=== PATIENT | female | born 1990 | race Caucasian/White ===

== ENCOUNTER 2023-04-24 17:36 | Emergency (ER) | payer OTHER, SELFPAY ==
[2023-04-24 17:40] VITALS: BP 146/85; PULSE 91; RESP 19; TEMP 36.7; O2SAT 99; BMI 26.4
--- NOTE | 2023-04-24 17:53 | DI.US.S_ITS ---
PROCEDURE: US OB <= 14 WEEKS FETUS INDICATIONS: SPOTTING 6 WEEKS OUTSIDE/PRIOR DATING DATA: Last menstrual period (LMP): March 11, 2023. LMP-based estimated date of delivery (ONIEL): December 16, 2023. TECHNIQUE: Real-time scanning was performed of the fetus and maternal pelvic organs, with image documentation. Endovaginal scanning was also performed to better visualize the fetus and maternal ovaries. COMPARISON: None. FINDINGS: Embryo: There is a suspected intrauterine gestational sac measuring approximately 5 weeks and 5 days based off mean gestational sac diameter of 0.9 cm. No pole. No evidence for cardiac activity. No evidence for perigestational hemorrhage. Heart rate: Not detected Maternal organs: Ovaries demonstrate probable right corpus luteal cyst measuring 1.4 x 0.6 by was 0.9 cm in size. No suspicious ovarian/adnexal masses. No pathologic pelvic free fluid. IMPRESSION: Likely single intrauterine gestation measuring approximately 5 weeks and 5 days based off mean gestational sac diameter measurements. No pole or cardiac activity visualized. No acute sonographic abnormalities identified. Recommend continued close clinical surveillance and consideration for serial quantitative beta HCG measurements to document expected rate of rise. Short interval follow-up imaging as needed to confirm presence of cardiac activity. We strive to produce accurate, complete, and clear reports of imaging services. To assist us in improving patient care, this report was composed using standard report templates and voice recognition software. Therefore, it may contain abnormal punctuation, insertions and/or omissions. Occasional wrong-word or sound-alike substitutions may occur. Though we review the report and make efforts to correct it, we do recommend that the report be read carefully in proper context to recognize any text inaccuracies. Dictated by: Jake Yuan M.D. on 04/24/2023 at 19:01 Approved by: Jake Yuan M.D. on 04/24/2023 at 19:05
[2023-04-24 18:10] LABS: Add Manual Diff / Slide Review NO; Basophils Absolute Auto 0 /uL (0-100); Basophils Percent Auto 0.7 % (0-2); Eosinophils Absolute Auto 100 /uL (0-450); Hematocrit 39.3 % (36-46); Hemoglobin 12.9 g/dL (12.0-16.0); Lymphocytes Absolute Auto 900 /uL (1100-4500); Lymphocytes Percent Auto 13.8 % (25-40); Mean Corpuscular HGB Conc 32.9 % (30-36); Mean Corpuscular Hemoglobin 29.1 PG (26-34); Mean Corpuscular Volume 88.6 fL (80-100); Monocytes Absolute Auto 400 /uL (0-900); Monocytes Percent Auto 6.3 % (3-14); Neutrophils Absolute Auto 5000 /uL (1500-7000); Neutrophils Percent Auto 77.2 % (50-75); Platelet Count 159 X10^3/uL (150-400); Red Blood Cell Count 4.44 X10^6/uL (4.0-5.2); Red Cell Distribution Width 14.1 % (11.6-14.8); White Blood Cell Count 6.4 X10^3/uL (4.5-11.0)
--- NOTE | 2023-04-24 18:16 | PC.NURSE ---
US at bedside
[2023-04-24 18:23] LABS: Alanine Aminotransferase 17 IU/L (<35); Albumin 4.4 g/dL (3.5-5.0); Albumin Globulin Ratio 1.4 (1.0-2.8); Alkaline Phosphatase 58 U/L (38-126); Aspartate Aminotransferase 20 IU/L (14-36); BUN Creatinine Ratio 10.7 (6-22); Bilirubin Total 0.7 mg/dL (0.2-1.3); Blood Urea Nitrogen 6 mg/dL (7-17); Calcium 9.1 mg/dL (8.4-10.2); Carbon Dioxide 23 mmol/L (22-32); Chloride 103 mmol/L (98-107); Estimated Glomerular Filt Rate > 60 mL/min (>60); Globulin 3.1 g/dL (1.7-4.1); Glucose 118 mg/dL (70-100); HEMOLYSIS < 15 (0-50); Potassium 3.7 mmol/L (3.4-5.1); Sodium 137 mmol/L (137-145); Total Protein 7.5 g/dL (6.3-8.2)
[2023-04-24 18:39] LABS: HCG Quantitative /Beta subunit 12203 mIU/mL
[2023-04-24 18:55] LABS: RBC Urine 0-1/HPF (0-5/HPF)
[2023-04-24 18:56] LABS: Bacteria Urine Many (>30); Squamous Epithelial Cell Urine 10-30 /HPF (0-5/HPF); WBC Urine 5-10/HPF (0-5/HPF)
--- NOTE | 2023-04-24 19:32 | ED_ITS ---
HPI - General Adult General Chief complaint: OB/Uterine Contractions Stated complaint: sent by [facility] for US Time Seen by Provider: 04/24/23 17:56 Source: patient Mode of arrival: Family Vehicle History of Present Illness HPI narrative: Patient is a 33-year-old female. at approximately 6 weeks EGA. She went to a outside walk-in clinic today for upper respiratory tract infection like symptoms. While she was in the waiting room she started to have vaginal spotting and some cramping. No urinary symptoms. She was tested for multiple viral illnesses all of which were negative the outside facility and sent to the emergency department for an ultrasound because of the vaginal bleeding. She does have an appointment at the beginning of next week with her OB provider. Related Data Allergies Allergy/AdvReac Type Severity Reaction Status Date / Time amoxicillin [From Augmentin] Allergy Rash Verified 04/24/23 19:06 clavulanic acid Allergy Rash Verified 04/24/23 19:06 [From Augmentin] diclofenac Allergy Rash Verified 04/24/23 19:06 ketamine Allergy Difficulty Verified 04/24/23 19:04 Breathing Latex, Natural Rubber Allergy Rash Verified 04/24/23 19:06 Penicillins Allergy Rash Verified 04/24/23 19:06 sulfamethoxazole Allergy Rash Verified 04/24/23 19:06 [From Bactrim] trimethoprim [From Bactrim] Allergy Rash Verified 04/24/23 19:06 Review of Systems Constitutional Constitutional: Reports system reviewed and no additional complaints, except as documented Gastrointestinal Gastrointestinal: Reports system reviewed and no additional complaints, except as documented Genitourinary Genitourinary: Reports system reviewed and no additional complaints, except as documented Integumentary/Breasts Skin/Breast: Reports system reviewed and no additional complaints, except as documented Patient History Social History Smoking Status: Never smoker Smoking Status: Never smoker alcohol intake frequency: 0-2 drinks per day Substance Use Type: does not use Exam Initial Vital Signs Initial Vital Signs: Vital Signs Temperature 98.1 F 04/24/23 17:40 Pulse Rate 91 H 04/24/23 17:40 Respiratory Rate 19 04/24/23 17:40 Blood Pressure 146/85 H 04/24/23 17:40 Pulse Oximetry 99 04/24/23 17:40 Oxygen Delivery Method Room Air 04/24/23 17:40 HENMT Head: normal to inspection and normocephalic GI Inspection: normal to inspection and non-distended Extrem General: normal to inspection Course Orders Ordered: ED Orders 04/24/23 17:28 Beta HCG, Quant [HCG Quantitative /Beta subunit] Stat Complete Blood Count AUTO DIFF Stat Comprehensive Metabolic Panel Stat 04/24/23 17:53 US OB <= 14 weeks fetus Stat 04/24/23 17:58 Type and Screen Stat 04/24/23 18:10 Urine Culture Stat Urine Microscopic Stat Vital Signs Vital signs: Vital Signs - 8 hr 04/24/23 17:40 04/24/23 19:43 Temperature 98.1 F Pulse Rate 91 H 93 H Respiratory Rate 19 20 Blood Pressure 146/85 H 125/69 Pulse Oximetry 99 100 Oxygen Delivery Method Room Air Room Air Medical Decision Making Lab Data Lab results reviewed: Yes I reviewed the patient's lab results. 04/24/23 17:28 04/24/23 17:28 Labs: Lab Results 04/24/23 04/24/23 04/24/23 Range/Units 17:28 17:58 18:10 WBC 6.4 (4.5-11.0) X10^3/uL RBC 4.44 (4.0-5.2) X10^6/uL Hgb 12.9 (12.0-16.0) g/dL Hct 39.3 (36-46) % MCV 88.6 (80-100) fL MCH 29.1 (26-34) PG MCHC 32.9 (30-36) % RDW 14.1 (11.6-14.8) % Plt Count 159 (150-400) X10^3/uL Neut % (Auto) 77.2 H (50-75) % Lymph % (Auto) 13.8 L (25-40) % [place] % (Auto) 6.3 (3-14) % Eos % (Auto) 2.0 (2-4) % Baso % (Auto) 0.7 (0-2) % Neut # (Auto) 5000 (5920-9281) /uL Lymph # (Auto) 900 L (8883-7546) /uL [place] # (Auto) 400 (0-900) /uL Eos # (Auto) 100 (0-450) /uL Baso # (Auto) 0 (0-100) /uL Sodium 137 (137-145) mmol/L Potassium 3.7 (3.4-5.1) mmol/L Chloride 103 (98-107) mmol/L Carbon Dioxide 23 (22-32) mmol/L BUN 6 L (7-17) mg/dL Creatinine 0.56 (0.52-1.04) mg/dL Estimated GFR > 60 (>60) mL/min BUN/Creatinine Ratio 10.7 (6-22) Glucose 118 H (70-100) mg/dL Calcium 9.1 (8.4-10.2) mg/dL Total Bilirubin 0.7 (0.2-1.3) mg/dL AST 20 (14-36) IU/L ALT 17 (<35) IU/L Alkaline Phosphatase 58 (38-126) U/L Total Protein 7.5 (6.3-8.2) g/dL Albumin 4.4 (3.5-5.0) g/dL Globulin 3.1 (1.7-4.1) g/dL Albumin/Globulin Ratio 1.4 (1.0-2.8) HCG, Quant 71833 mIU/mL Urine RBC 0-1/hpf (0-5/HPF) Urine WBC 5-10/hpf H (0-5/HPF) Ur Squamous Epith Cells 10-30 /hpf H (0-5/HPF) Urine Bacteria Many (>30) H (None) Blood Type O Positive Antibody Screen Negative Urine Dip Bedside Urine Glucose Negative Bedside Urine Bilirubin - Negative Bedside Urine Ketone - Negative Urine Specific [place] 1.005 Bedside Urine Occult Blood +/- Bedside Urine pH 6.0 Bedside Urine Protein - Negative Bedside Urine Urobilinogen - Negative Bedside Urine Nitrite - Negative Bedside Urine Leukocytes + 70 Esterase Point of care testing: Urine Dip Bedside Urine Glucose Negative Bedside Urine Bilirubin - Negative Bedside Urine Ketone - Negative Urine Specific [place] 1.005 Bedside Urine Occult Blood +/- Bedside Urine pH 6.0 Bedside Urine Protein - Negative Bedside Urine Urobilinogen - Negative Bedside Urine Nitrite - Negative Bedside Urine Leukocytes + 70 Esterase Imaging Data US - OB: Radiologist's Impression: PROCEDURE: US OB <= 14 WEEKS FETUS INDICATIONS: SPOTTING 6 WEEKS OUTSIDE/PRIOR DATING DATA: Last menstrual period (LMP): March 11, 2023. LMP-based estimated date of delivery (ONIEL): December 16, 2023. TECHNIQUE: Real-time scanning was performed of the fetus and maternal pelvic organs, with image documentation. Endovaginal scanning was also performed to better visualize the fetus and maternal ovaries. COMPARISON: None. FINDINGS: Embryo: There is a suspected intrauterine gestational sac measuring approximately 5 weeks and 5 days based off mean gestational sac diameter of 0.9 cm. No pole. No evidence for cardiac activity. No evidence for perigestational hemorrhage. Heart rate: Not detected Maternal organs: Ovaries demonstrate probable right corpus luteal cyst measuring 1.4 x 0.6 by was 0.9 cm in size. No suspicious ovarian/adnexal masses. No pathologic pelvic free fluid. IMPRESSION: Likely single intrauterine gestation measuring approximately 5 weeks and 5 days based off mean gestational sac diameter measurements. No pole or cardiac activity visualized. No acute sonographic abnormalities identified. Recommend continued close clinical surveillance and consideration for serial quantitative beta HCG measurements to document expected rate of rise. Short interval follow- up imaging as needed to confirm presence of cardiac activity. We strive to produce accurate, complete, and clear reports of imaging services. To assist us in improving patient care, this report was composed using standard report templates and voice recognition software. Therefore, it may contain abnormal punctuation, insertions and/or omissions. Occasional wrong-word or sound-alike substitutions may occur. Though we review the report and make efforts to correct it, we do recommend that the report be read carefully in proper context to recognize any text inaccuracies. [facility] Narrative Medical decision making narrative: Patient is Rh positive. She does have white cells and bacteria in her urine but also quite a few epi cells. She is not having any UTI symptoms. We will wait for the urine culture before treating with any antibiotics. Ultrasound does show an intrauterine more consistent with 5 weeks gestation. I did discuss all this with the patient. Will have her keep her appointment at the beginning of next week for re-evaluation and potential repeat labs to trend her hCG quantitative level. Patient was given return precautions. She expressed understanding and agreement. Discharge Plan Departure Patient Disposition: Home Clinical Impression: Miscarriage, threatened, early Instructions: Threatened Miscarriage Activity Restrictions/Additional Instructions: I recommend that you keep your follow-up appointment on Friday with your OB provider. Your hCG quantitative level today was 25412. You can discuss with them on Friday the indications for repeating this. Continue to take all of your medications as directed. Return to the emergency department for new or worsening symptoms. Referrals: Leora Gtz ARNP [Primary Care Provider] - Stand Alone Forms: Patient Portal/API
[2023-04-24 19:43] VITALS: BP 125/69; PULSE 93; RESP 20; O2SAT 100
== END 2023-04-24 19:45 | disposition home or self-care (01) ==
PROVIDERS: Emergency Medicine; Emergency Provider Emergency Medicine; PCP Nurse Practitioner
DX: O20.0 Threatened abortion (principal); Z3A.01 Less than 8 weeks gestation of pregnancy
CPT/HCPCS: 36415; 76801; 76817; 80053; 81003; 81015; 84702; 85025; 86850; 86900; 86901; 87086; 93975; 99283; 99284